=== PATIENT | female | born 1975 | race Caucasian/White ===

== ENCOUNTER 2022-02-16 15:14 | Emergency (ER) | payer OTHER ==
[~2022-02-16] VITALS: Ht 165.1 cm; Wt 88.5 kg
[~2022-02-16 15:14] MED LIST: ASPI-524 PO; BENA5TAB38 PO; CHOL100038 PO; CRE5 PO; GEMF600T89 PO; GLIP10TA21 PO; METF-833 PO; OMEP20CA16 PO; SITA100T11 PO
[2022-02-16 15:22] VITALS: BP_SYST 121
--- NOTE | 2022-02-16 15:22 | NUR ---
Patient triaged and placed in waiting room. VSS and patient appears in no acute distress at this time. Accompanied by PARTNER, awaiting available bed, and MD notified of need for MSE.
--- NOTE | 2022-02-16 17:57 | NUR ---
PATIENT BROUGHT IN WITH PARTNER COMPLAINING OF RIGHT FOOT AND ANKLE PAIN WITH SWELLING AND BRUISING NOTED. PAIN 8/10. PAIN WITH AMBULATION. NO ACUTE DISTRESS NOTED
--- NOTE | 2022-02-16 17:58 | NUR ---
ER IN TRIAGE examining patient.
[2022-02-16] MEDS ORDERED: IBUP-1969 PO (18:01)
--- NOTE | 2022-02-16 18:28 | NUR ---
Treated pt. w. DENIZ-wrap, hard shoe, & crutches.
[2022-02-16] MEDS ORDERED: HYDROcodone/ACETAMIN 5-325 MG TAB (NORCO/ VICODIN) PO ONE (18:30)
[2022-02-16] MEDS ORDERED: IBUPROFEN 600 MG TABLET PO ONE (18:30)
[2022-02-16 18:40] VITALS: BP_SYST 118
--- NOTE | 2022-02-16 18:40 | NUR ---
Patient given written and verbal discharge instructions and verbalizes understanding. ER MD discussed with patient the results and treatment provided. Patient in stable condition. ID arm band removed. IV catheter removed intact and dressing applied, no active bleeding. Rx of IBUPROFEN given. Patient educated on pain management and to follow up with PMD. Pain Scale 0/10 Opportunity for questions provided and answered. Medication side effect fact sheet provided.
== END 2022-02-16 18:40 | disposition home or self-care (01) ==
LOC: SED 15:14
DX: S97.81XA Crushing injury of right foot, initial encounter (principal); Z79.899 Other long term (current) drug therapy; X50.0XXA Overexertion from strenuous movement or load, initial encounter; Y93.89 Activity, other specified; Y92.89 Other specified places as the place of occurrence of the external cause; Y99.8 Other external cause status
CPT/HCPCS: 99284

== ENCOUNTER 2022-02-21 12:22 | Outpatient (CLI) | payer OTHER ==
[~2022-02-21 12:22] MED LIST changes: +IBUP-1969 PO
== END 2022-02-21 20:36 | disposition home or self-care (01) ==
LOC: SRD 12:22
PROVIDERS: ATTEND Internal Medicine
DX: M25.471 Effusion, right ankle (principal); M79.89 Other specified soft tissue disorders; M25.571 Pain in right ankle and joints of right foot; M79.671 Pain in right foot